=== PATIENT | male | born 1975 | race Caucasian/White ===

== ENCOUNTER → 2023-02-01 07:24 | Outpatient (CLI) | payer OTHER, SELFPAY ==
[2023-02-01 10:05] LABS: Prostate Specific Antigen 0.968 ng/mL (0.10-4.00)
== END ==
PROVIDERS: PCP Physician Assistant Medical; Referring Provider Specialist; Visit Provider Specialist
DX: Z85.46 Personal history of malignant neoplasm of prostate (principal)
CPT/HCPCS: 36415; 84153

== ENCOUNTER → 2023-07-22 17:21 | Outpatient (CLI) | payer OTHER, SELFPAY ==
[2023-07-22 18:48] LABS: Prostate Specific Antigen 0.965 ng/mL (0.10-4.00)
== END ==
PROVIDERS: PCP Physician Assistant Medical; Referring Provider Specialist; Visit Provider Specialist
DX: Z85.46 Personal history of malignant neoplasm of prostate (principal)
CPT/HCPCS: 36415; 84153

== ENCOUNTER → 2024-08-27 16:35 | Outpatient (CLI) | payer OTHER, SELFPAY ==
[2024-08-27 17:10] LABS: Estimated Glomerular Filt Rate > 60 mL/min (>60)
[2024-08-27 17:41] LABS: Prostate Specific Antigen 1.02 ng/mL (0.10-4.00)
== END ==
PROVIDERS: PCP Physician Assistant Medical; Referring Provider Urology; Visit Provider Urology
DX: C61 Malignant neoplasm of prostate (principal); N52.9 Male erectile dysfunction, unspecified; R39.9 Unspecified symptoms and signs involving the genitourinary system
CPT/HCPCS: 36415; 51798; 81002; 82565; 84153; 99213

== ENCOUNTER → 2024-09-07 17:03 | Outpatient (CLI) | payer OTHER, SELFPAY ==
--- NOTE | 2024-09-07 17:04 | DI.MRI.S_ITS ---
PROCEDURE: MR PELVIC PROSTATE PROTOCOL INDICATIONS: 49 y/o M w/ prostate cancer, please eval. TECHNIQUE: Coronal HASTE, axial T1 FSE with fat saturation, 3-plane nonbreath-hold T2 FSE. After the administration of contrast, dynamic axial, delayed axial and coronal VIBE or 2-D FLASH with fat saturation through the pelvis. Diffusion weighted imaging and ADC was performed. COMPARISON: [facility], MR, MR PELVIS WITH/WITHOUT CONTRAST, 02/06/2019, 7:23. [facility], CT, CT ABDOMEN PELVIS WITH CONTRAST, 03/18/2023, 14:57. FINDINGS: Image quality: Diffusion weighted and dynamic contrast enhanced images are diagnostic. Prostate: Gland size is 4.3 x 3.7 x 3.1 cm; ellipsoid gland volume is 26 mL. No significant foci of intrinsic T1 hyperintensity to suggest hemorrhage. A few BPH nodules. Prior TURP. No significant areas of ADC hypointensity in the peripheral zone. No suspicious foci of the T2 hypointense signal in the transitional zone. No PI-RADS 4 or 5 observations. No interval change appreciated. Genitourinary system: Bladder wall thickness is normal. Distal ureters are non distended. Bowel and peritoneum: No pathologic free pelvic fluid. Inferior colon and small bowel loops are normal in caliber. Diverticulosis. Nodes and vessels: No pelvic or inguinal adenopathy by size criteria. Iliac vessels are normal in caliber. Soft tissues: No inguinal hernias. Scarring in the subcutaneous tissues of the mons pubis. Vasectomy clips. Bones: Marrow demonstrates normal overall signal, without lesions to suggest metastases. IMPRESSION: 1. Prominent prostate gland. Prior TURP. 2. No PI-RADS 4 or 5 observations. 3. No enlarged lymph nodes. Dictated by: Gerard Guidry M.D. on 09/08/2024 at 11:16 Approved by: Gerard Guidry M.D. on 09/08/2024 at 11:27
== END ==
PROVIDERS: PCP Physician Assistant Medical; Referring Provider Urology; Visit Provider Urology
DX: C61 Malignant neoplasm of prostate (principal)
CPT/HCPCS: 72197; A9579